=== PATIENT | male | born 1960 | race American Indian/Alaskan Native ===

== ENCOUNTER 2019-10-23 11:38 | Inpatient (IN) | payer MEDICARE ==
--- NOTE | 2019-10-23 11:52 | Event Note ---
ED Screening Note Date of service: 10/23/19 Time: 11:51 ED Screening Note: 58 y o male with pmh of DVT presents for left calf pain with sob x 3 days worsening today This initial assessment/diagnostic orders/clinical plan/treatment(s) is/are subject to change based on patients health status, clinical progression and re- assessment by fellow clinical providers in the ED. Further treatment and workup at subsequent clinical providers discretion. Patient/guardian urged not to elope from the ED as their condition may be serious if not clinically assessed and managed. Initial orders include: labs us
--- NOTE | 2019-10-23 12:52 | XRay Report ---
CHEST 1 VIEW 10/23/2019 12:07 PM INDICATION / CLINICAL INFORMATION: Dyspnea. COMPARISON: None available. FINDINGS: SUPPORT DEVICES: None. HEART / MEDIASTINUM: No significant abnormality. LUNGS / PLEURA: There is no focal consolidation or significant effusion. There is mild linear opacifi cation in the right lung base most likely reflecting chronic scarring. No pneumothorax. ADDITIONAL FINDINGS: No significant additional findings. IMPRESSION: 1. No acute findings. Signer Name: Renato Huddleston MD Signed: 10/23/2019 12:47 PM Workstation Name: [id number]
--- NOTE | 2019-10-23 12:53 | Vascular Lab Report ---
DUPLEX DOPPLER LEFT LOWER EXTREMITY VEINS INDICATION: Shortness of Breath R/O DVT FINDINGS: There is lack of compressibility with lack of flow in the left mid to distal superficial femoral vein , left popliteal vein, and left posterior tibial vein consistent with occlusive DVT. The other visual ized left lower extremity veins appear patent. IMPRESSION: Occlusive DVT in the left mid to distal superficial femoral vein, left popliteal vein, and left poste rior tibial vein. Signer Name: Renato Huddleston MD Signed: 10/23/2019 12:49 PM Workstation Name: [id number]
[2019-10-23 14:03] LABS: Basophils % (Auto) 0.6 % (0.0-1.8); Eosinophils # (Auto) 0.1 K/mm3 (0.0-0.4); Eosinophils % (Auto) 1.2 % (0.0-4.3); Hematocrit 50.6 % (35.5-45.6); Hemoglobin 16.9 gm/dl (11.8-15.2); Lymphocytes # (Auto) 2.3 K/mm3 (1.2-5.4); Mean Corpuscular HGB Conc 33 % (32-34); Mean Corpuscular Volume 90 fl (84-94); Monocytes % (Auto) 13.2 % (0.0-7.3); Platelet Count 160 K/mm3 (140-440); Red Blood Count 5.62 M/mm3 (3.65-5.03); Red Cell Distribution Width 14.9 % (13.2-15.2)
[2019-10-23 14:14] LABS: Calcium 9.5 mg/dL (8.4-10.2)
[2019-10-23] MEDS ORDERED: SODIUM CHLORIDE 0.9% 500 ML 500 ML IV ONE (16:01)
[2019-10-23] MEDS ORDERED: ENOXAPARIN 100 MG/1 ML INJ SUB-Q STA (16:01)
--- NOTE | 2019-10-23 16:02 | Event Note ---
Date of service: 10/23/19 Face to Face: 58-year-old gentleman with history of DVT a few years ago, recently moved here from [place], now presenting with 3-4 days of left leg pain, and discomfort, found to have rather large DVT. He endorsed shortness of breath to physician golf course assistant and nursing staff. Lovenox ordered. IV fluids ordered. CT angiogram chest ordered. We will reassess after initial data points. If no pulmonary embolism is identified on CT angiogram, we will discussed with vascular surgery appropriate disposition in versus outpatient anticoagulation. EKG shows a sinus rhythm, left axis deviation, left anterior fascicular block, without prior for comparison. The patient indicated no contraindications to systemic anticoagulation. update at 702 pm, 10/23/2019 Found to have large pulmonary emboli, no evidence of right heart strain. Case was discussed with vascular surgery by my physician golf course assistant, Dr. Garcia, he advises that catheter directed lysis is not indicated at this time, indicates his group can follow in consultation. Hospital physician, Dr. Rosa Stuart to admit Vital Signs 10/23/19 11:51 Temperature 99 F Pulse Rate 70 Respiratory 20 Rate Blood Pressure 122/83 O2 Sat by Pulse 96 Oximetry Lab Results 10/23/19 10/23/19 10/23/19 Range/Units 13:35 13:35 13:35 WBC 7.4 (4.5-11.0) K/mm3 RBC 5.62 H (3.65-5.03) M/mm3 Hgb 16.9 H (11.8-15.2) gm/dl Hct 50.6 H (35.5-45.6) % MCV 90 (84-94) fl MCH 30 (28-32) pg MCHC 33 (32-34) % RDW 14.9 (13.2-15.2) % Plt Count 160 (140-440) K/mm3 Lymph % (Auto) 31.0 (13.4-35.0) % [place] % (Auto) 13.2 H (0.0-7.3) % Eos % (Auto) 1.2 (0.0-4.3) % Baso % (Auto) 0.6 (0.0-1.8) % Lymph # 2.3 (1.2-5.4) K/mm3 [place] # 1.0 H (0.0-0.8) K/mm3 Eos # 0.1 (0.0-0.4) K/mm3 Baso # 0.0 (0.0-0.1) K/mm3 Seg Neutrophils % 54.0 (40.0-70.0) % Seg Neutrophils # 4.0 (1.8-7.7) K/mm3 PT (12.2-14.9) Sec. INR (0.87-1.13) APTT (24.2-36.6) Sec. D-Dimer > 72827 H (0-234) ng/mlDDU Sodium 138 (137-145) mmol/L Potassium 4.4 (3.6-5.0) mmol/L Chloride 99.1 (98-107) mmol/L Carbon Dioxide 25 (22-30) mmol/L Anion Gap 18 mmol/L BUN 16 (9-20) mg/dL Creatinine 1.4 (0.8-1.5) mg/dL Estimated GFR 52 ml/min BUN/Creatinine Ratio 11 % Glucose 94 (75-100) mg/dL Calcium 9.5 (8.4-10.2) mg/dL Magnesium (1.7-2.3) mg/dL Total Bilirubin (0.1-1.2) mg/dL Direct Bilirubin (0-0.2) mg/dL Indirect Bilirubin mg/dL AST (5-40) units/L ALT (7-56) units/L Alkaline Phosphatase (35-129) units/L Total Creatine Kinase (55-170) units/L Troponin T (0.00-0.029) ng/mL NT-Pro-B Natriuret Pep (0-900) pg/mL Total Protein (6.3-8.2) g/dL Albumin (3.9-5) g/dL Albumin/Globulin Ratio % 10/23/19 10/23/19 10/23/19 Range/Units 13:35 15:54 15:54 WBC (4.5-11.0) K/mm3 RBC (3.65-5.03) M/mm3 Hgb (11.8-15.2) gm/dl Hct (35.5-45.6) % MCV (84-94) fl MCH (28-32) pg MCHC (32-34) % RDW (13.2-15.2) % Plt Count (140-440) K/mm3 Lymph % (Auto) (13.4-35.0) % [place] % (Auto) (0.0-7.3) % Eos % (Auto) (0.0-4.3) % Baso % (Auto) (0.0-1.8) % Lymph # (1.2-5.4) K/mm3 [place] # (0.0-0.8) K/mm3 Eos # (0.0-0.4) K/mm3 Baso # (0.0-0.1) K/mm3 Seg Neutrophils % (40.0-70.0) % Seg Neutrophils # (1.8-7.7) K/mm3 PT 13.9 (12.2-14.9) Sec. INR 1.08 (0.87-1.13) APTT 23.9 L (24.2-36.6) Sec. D-Dimer (0-234) ng/mlDDU Sodium (137-145) mmol/L Potassium (3.6-5.0) mmol/L Chloride (98-107) mmol/L Carbon Dioxide (22-30) mmol/L Anion Gap mmol/L BUN (9-20) mg/dL Creatinine (0.8-1.5) mg/dL Estimated GFR ml/min BUN/Creatinine Ratio % Glucose (75-100) mg/dL Calcium (8.4-10.2) mg/dL Magnesium 1.80 (1.7-2.3) mg/dL Total Bilirubin 0.60 (0.1-1.2) mg/dL Direct Bilirubin < 0.2 (0-0.2) mg/dL Indirect Bilirubin 0.4 mg/dL AST 29 (5-40) units/L ALT 27 (7-56) units/L Alkaline Phosphatase 83 (35-129) units/L Total Creatine Kinase 231 H (55-170) units/L Troponin T < 0.010 (0.00-0.029) ng/mL NT-Pro-B Natriuret Pep 114.2 (0-900) pg/mL Total Protein 8.1 (6.3-8.2) g/dL Albumin 3.8 L (3.9-5) g/dL Albumin/Globulin Ratio 0.9 % Print Report Referring Physician: JAMIE TRUJILLO Patient Name: GENE COBOS Date of : 1960 Sex: Male Report Date: 2019-10-23 Report Status: Finalized Findings [facility] [address] [place] [address] Cat Scan Report Signed Patient: GENE COBOS MR#: [id number] : 1960 Acct:[id number] Age/Sex: 58 / M ADM Date: 10/23/19 Loc: ED Attending Dr: Ordering Physician: JAMIE TRUJILLO Date of Service: 10/23/19 Procedure(s): CT angio chest Accession Number(s): [id number] cc: JAMIE TRUJILLO CTA CHEST WITH IV CONTRAST INDICATION: + DVT, SOB. TECHNIQUE: Axial CT images were obtained through the chest after injection of the patient received 60 mL of IV Omnipaque 350 IV contrast. 3 plane MIP reconstructions were produced. All CT scans at this location are performed using CT dose reduction for ALARA by means of automated exposure control. COMPARISON: None available. FINDINGS: Pulmonary Arteries: There are numerous pulmonary emboli involving the bilateral lobar arteries extending into the segmental arteries relatively diffusely in both lungs. The largest burden of embolism appears to be in the right lower lobe with multiple segmental and subsegmental arteries involved. There is no definite evidence of right heart strain by CT. Lungs: There is no consolidation or evidence of pulmonary infarct. There is mild subpleural reticulation in both lower lobes. There is no pleural effusion or pneumothorax. Trachea and Bronchi: No significant abnormality. Heart and Pericardium: There is moderate coronary artery atherosclerosis. Vasculature: No significant abnormality. Lymphatics: No lymphadenopathy. Additional Findings: None. Upper Abdomen: No acute findings. Skeletal Structures: No significant osseous abnormality. IMPRESSION: 1. Bilateral large burden of lobar, segmental, and subsegmental PE. No saddle embolus identified. No definite findings to suggest right heart strain by CT. 2. No acute pulmonary parenchymal findings. Findings were discussed with Dr. García at about 5:35 PM central time on 10/23/2019. Signer Name: Renato Huddleston MD Signed: 10/23/2019 6:48 PM Workstation Name: [id number] Transcribed By: BIA Dictated By: Renato Huddleston MD Electronically Authenticated By: Renato Huddleston MD Signed Date/Time: 10/23/19 2771
[2019-10-23 16:19] LABS: INR 1.08 (0.87-1.13)
[2019-10-23 16:20] LABS: Partial Thromboplastin Time 23.9 Sec. (24.2-36.6)
--- NOTE | 2019-10-23 16:39 | Emergency Department Report ---
ED General Adult HPI - General Chief complaint: Dyspnea/Respdistress Stated complaint: SOB/RT LEG PAIN Time Seen by Provider: 10/23/19 16:00 Source: patient Mode of arrival: Ambulatory Limitations: No Limitations - History of Present Illness Initial comments: 58-year-old -[place] male patient with history of CAD with 5 stent placements, COPD, sleep apnea, hypertension, and DVT presents with complaints of left lower leg swelling and shortness of breath for the past 4 days. Patient denies any current anticoagulants. He states that he had recent long travel in the beginning of September via car ride from [place]. He rates his pain as a 7/10 in severity and states it worsens with ambulation. Patient states the shortness of breath occurs only with exertion and there is no shortness of breath at rest. PHe reports he denies any leg swelling, however states his leg feels really tight. Patient states he has been noncompliant with his CPAP machine for the past month and a half. He denies any further smoking, cough, fever, chest pain, dizziness, or syncopal episodes. -: Sudden, days(s) Severity scale (0 -10): 7 Quality: aching Consistency: constant Worsens with: movement Associated Symptoms: shortness of breath. denies: chest pain, cough, headaches, loss of appetite, syncope Treatments Prior to Arrival: none - Related Data Allergies Allergy/AdvReac Type Severity Reaction Status Date / Time ibuprofen Allergy Unknown Verified 10/23/19 11:40 ED Review of Systems ROS: Stated complaint: SOB/RT LEG PAIN Other details as noted in HPI Comment: All other systems reviewed and negative Respiratory: shortness of breath, SOB with exertion. denies: cough, orthopnea, SOB at rest, stridor, wheezing Cardiovascular: denies: chest pain, edema Musculoskeletal: as per HPI ED Past Medical Hx - Past Medical History Hx COPD: Yes Additional medical history: BRONCHTITS/ SLEEP APNEA - Surgical History Additional Surgical History: STENTS X5 - Social History Smoking Status: Former Smoker Substance Use Type: Alcohol, Marijuana ED Physical Exam - General Limitations: No Limitations General appearance: alert, in no apparent distress, obese - Head Head exam: Present: atraumatic, normocephalic - Eye Eye exam: Present: normal appearance. Absent: scleral icterus - ENT ENT exam: Present: normal exam, normal orophraynx, mucous membranes moist - Neck Neck exam: Present: normal inspection - Respiratory Respiratory exam: Present: normal lung sounds bilaterally. Absent: respiratory distress, chest wall tenderness - Cardiovascular Cardiovascular Exam: Present: regular rate, normal rhythm. Absent: systolic murmur, diastolic murmur, rubs, gallop - Rectal Rectal exam: Present: deferred - Extremities Exam Extremities exam: Present: calf tenderness (left-sided with tenderness extending to the posterior knee. No swelling or edema noted.), other (for moral and pedal pulses are palpable bilaterally. Right popliteal pulse palpable, however unable to palpate left popliteal pulse and no cyanosis, erythema,or swelling of the left leg noted) - Back Exam Back exam: Present: full ROM - Neurological Exam Neurological exam: Present: alert, oriented X3, normal gait - Psychiatric Psychiatric exam: Present: normal affect, normal mood - Skin Skin exam: Present: warm, dry, intact, normal color. Absent: rash, cyanosis, diaphoretic, erythema ED Course Vital Signs 10/23/19 10/23/19 11:51 16:01 Temperature 99 F Pulse Rate 70 Respiratory 20 18 Rate Blood Pressure 122/83 O2 Sat by Pulse 96 100 Oximetry - Reevaluation(s) Reevaluation #1: 10/23/19 18:28 Patient's satting at 99% on [address] angios chest results pending, however it appears patient multiple bilateral emboli Large DVT noted on ultrasound Vascular surgeon paged, pending recommendations and admission Reevaluation #2: 10/23/19 18:[address] Garcia, vascular surgery-recommends anticoagulation for treatment with admission. He states he will consult on patient. Admission. Patient with Dr. Stuart, patient to be admitted to hospital medicine. Pt remains stable ED Medical Decision Making - Lab Data Result diagrams: 10/23/19 13:35 10/23/19 13:35 Lab Results 10/23/19 10/23/19 10/23/19 Range/Units 13:35 13:35 13:35 WBC 7.4 (4.5-11.0) K/mm3 RBC 5.62 H (3.65-5.03) M/mm3 Hgb 16.9 H (11.8-15.2) gm/dl Hct 50.6 H (35.5-45.6) % MCV 90 (84-94) fl MCH 30 (28-32) pg MCHC 33 (32-34) % RDW 14.9 (13.2-15.2) % Plt Count 160 (140-440) K/mm3 Lymph % (Auto) 31.0 (13.4-35.0) % [place] % (Auto) 13.2 H (0.0-7.3) % Eos % (Auto) 1.2 (0.0-4.3) % Baso % (Auto) 0.6 (0.0-1.8) % Lymph # 2.3 (1.2-5.4) K/mm3 [place] # 1.0 H (0.0-0.8) K/mm3 Eos # 0.1 (0.0-0.4) K/mm3 Baso # 0.0 (0.0-0.1) K/mm3 Seg Neutrophils % 54.0 (40.0-70.0) % Seg Neutrophils # 4.0 (1.8-7.7) K/mm3 PT (12.2-14.9) Sec. INR (0.87-1.13) APTT (24.2-36.6) Sec. D-Dimer > 80468 H (0-234) ng/mlDDU Sodium 138 (137-145) mmol/L Potassium 4.4 (3.6-5.0) mmol/L Chloride 99.1 (98-107) mmol/L Carbon Dioxide 25 (22-30) mmol/L Anion Gap 18 mmol/L BUN 16 (9-20) mg/dL Creatinine 1.4 (0.8-1.5) mg/dL Estimated GFR 52 ml/min BUN/Creatinine Ratio 11 % Glucose 94 (75-100) mg/dL Calcium 9.5 (8.4-10.2) mg/dL Magnesium (1.7-2.3) mg/dL Total Bilirubin (0.1-1.2) mg/dL Direct Bilirubin (0-0.2) mg/dL Indirect Bilirubin mg/dL AST (5-40) units/L ALT (7-56) units/L Alkaline Phosphatase (35-129) units/L Total Creatine Kinase (55-170) units/L Troponin T (0.00-0.029) ng/mL NT-Pro-B Natriuret Pep (0-900) pg/mL Total Protein (6.3-8.2) g/dL Albumin (3.9-5) g/dL Albumin/Globulin Ratio % 10/23/19 10/23/19 10/23/19 Range/Units 13:35 15:54 15:54 WBC (4.5-11.0) K/mm3 RBC (3.65-5.03) M/mm3 Hgb (11.8-15.2) gm/dl Hct (35.5-45.6) % MCV (84-94) fl MCH (28-32) pg MCHC (32-34) % RDW (13.2-15.2) % Plt Count (140-440) K/mm3 Lymph % (Auto) (13.4-35.0) % [place] % (Auto) (0.0-7.3) % Eos % (Auto) (0.0-4.3) % Baso % (Auto) (0.0-1.8) % Lymph # (1.2-5.4) K/mm3 [place] # (0.0-0.8) K/mm3 Eos # (0.0-0.4) K/mm3 Baso # (0.0-0.1) K/mm3 Seg Neutrophils % (40.0-70.0) % Seg Neutrophils # (1.8-7.7) K/mm3 PT 13.9 (12.2-14.9) Sec. INR 1.08 (0.87-1.13) APTT 23.9 L (24.2-36.6) Sec. D-Dimer (0-234) ng/mlDDU Sodium (137-145) mmol/L Potassium (3.6-5.0) mmol/L Chloride (98-107) mmol/L Carbon Dioxide (22-30) mmol/L Anion Gap mmol/L BUN (9-20) mg/dL Creatinine (0.8-1.5) mg/dL Estimated GFR ml/min BUN/Creatinine Ratio % Glucose (75-100) mg/dL Calcium (8.4-10.2) mg/dL Magnesium 1.80 (1.7-2.3) mg/dL Total Bilirubin 0.60 (0.1-1.2) mg/dL Direct Bilirubin < 0.2 (0-0.2) mg/dL Indirect Bilirubin 0.4 mg/dL AST 29 (5-40) units/L ALT 27 (7-56) units/L Alkaline Phosphatase 83 (35-129) units/L Total Creatine Kinase 231 H (55-170) units/L Troponin T < 0.010 (0.00-0.029) ng/mL NT-Pro-B Natriuret Pep 114.2 (0-900) pg/mL Total Protein 8.1 (6.3-8.2) g/dL Albumin 3.8 L (3.9-5) g/dL Albumin/Globulin Ratio 0.9 % - EKG Data EKG shows normal: sinus rhythm Rate: normal - EKG Data Interpretation: nonspecific ST-T wave lexi, other (left anterior fascicular block ) - Radiology Data CHEST 1 VIEW 10/23/2019 12:07 PM INDICATION / CLINICAL INFORMATION: Dyspnea. COMPARISON: None available. FINDINGS: SUPPORT DEVICES: None. HEART / MEDIASTINUM: No significant abnormality. LUNGS / PLEURA: There is no focal consolidation or significant effusion. There is mild linear opacification in the right lung base most likely reflecting chronic scarring. No pneumothorax. ADDITIONAL FINDINGS: No significant additional findings. IMPRESSION: 1. No acute findings. . . . . DUPLEX DOPPLER LEFT LOWER EXTREMITY VEINS INDICATION: Shortness of Breath R/O DVT FINDINGS: There is lack of compressibility with lack of flow in the left mid to distal superficial femoral vein, left popliteal vein, and left posterior tibial vein consistent with occlusive DVT. The other visualized left lower extremity veins appear patent. IMPRESSION: Occlusive DVT in the left mid to distal superficial femoral vein, left popliteal vein, and left posterior tibial vein. . . . . Critical care attestation.: If time is entered above; I have spent that time in minutes in the direct care of this critically ill patient, excluding procedure time. ED Disposition Clinical Impression: Pulmonary embolism Qualifiers: Pulmonary embolism type: other Chronicity: acute Acute cor pulmonale presence: unspecified Qualified Code(s): I26.99 - Other pulmonary embolism without acute cor pulmonale Left leg DVT Qualifiers: Affected thrombotic vein of extremity: other lower extremity vein Chronicity: acute Qualified Code(s): I82.492 - Acute embolism and thrombosis of other specified deep vein of left lower extremity Disposition: DC-09 OP ADMIT IP TO THIS HOSP Is pt being admited?: Yes Condition: Stable Referrals: PRIMARY CARE, [Primary Care Provider] - 3-5 Days
[2019-10-23 16:44] LABS: Alanine Aminotransferase 27 units/L (7-56); Albumin 3.8 g/dL (3.9-5); Bilirubin,Direct < 0.2 mg/dL (0-0.2)
--- NOTE | 2019-10-23 18:53 | Cat Scan Report ---
CTA CHEST WITH IV CONTRAST INDICATION: + DVT, SOB. TECHNIQUE: Axial CT images were obtained through the chest after injection of the patient received 60 mL of IV O mnipaque 350 IV contrast. 3 plane MIP reconstructions were produced. All CT scans at this location ar e performed using CT dose reduction for ALARA by means of automated exposure control. COMPARISON: None available. FINDINGS: Pulmonary Arteries: There are numerous pulmonary emboli involving the bilateral lobar arteries extend ing into the segmental arteries relatively diffusely in both lungs. The largest burden of embolism ap pears to be in the right lower lobe with multiple segmental and subsegmental arteries involved. There is no definite evidence of right heart strain by CT. Lungs: There is no consolidation or evidence of pulmonary infarct. There is mild subpleural reticulat ion in both lower lobes. There is no pleural effusion or pneumothorax. Trachea and Bronchi: No significant abnormality. Heart and Pericardium: There is moderate coronary artery atherosclerosis. Vasculature: No significant abnormality. Lymphatics: No lymphadenopathy. Additional Findings: None. Upper Abdomen: No acute findings. Skeletal Structures: No significant osseous abnormality. IMPRESSION: 1. Bilateral large burden of lobar, segmental, and subsegmental PE. No saddle embolus identified. No definite findings to suggest right heart strain by CT. 2. No acute pulmonary parenchymal findings. Findings were discussed with Dr. García at about 5:35 PM central time on 10/23/2019. Signer Name: Renato Huddleston MD Signed: 10/23/2019 6:48 PM Workstation Name: [id number]
[2019-10-23] MEDS ORDERED: ALBUTEROL 2.5 MG/3 ML NEBU IH PRN (19:48)
[2019-10-23] MEDS ORDERED: ACETAMINOPHEN 325 MG TAB PO PRN (19:48)
[2019-10-23] MEDS ORDERED: ONDANSETRON 4 MG/2 ML INJ IV PRN (19:48)
--- NOTE | 2019-10-23 20:55 | History and Physical Report ---
History of Present Illness Date of examination: 10/23/19 Date of admission: 10/23/2019 Chief complaint: SOB, left leg pain History of present illness: 68-year-old -[place] male with history of DVT not currently on anticoagulation, hypertension, ROSALEE noncompliant CPAP, COPD, CAD status post stent 5 who presents [facility] ED with complaints of shortness of breath and left lower extremity swelling and pain x4 days. He describes his pain as sharp and s tates that "it feels like someone is head and head with a baseball bat to his leg". He rates the pain 8/10. Pain is aggravated with ambulation and movement. He has shortness of breath at rest which is worse with exertion. Patient states that he has a history of DVT and was previously on Coumadin which was discontinued approximately a year ago by his medical provider. He states that he recently moved from [place] to [place] in the beginning of September, and is currently living with his girlfriend. Admits to drive and from [place] to [place] but states that he stopped for frequent rest periods. Other than that there has been no prolonged period of immobility. He denies tobacco use, and admits to occasional social drinking. He does not have an established PCP in [place]. Past History Past Medical History: CAD, COPD, DVT (completed coumadin therapy one year ago), hypertension, other (ROSALEE noncompliant with CPAP) Past Surgical History: Other (stent x5) Social history: lives with family (girlfriend), other (occasional marijuana use, drinks 1-2 alcoholic beverages per week) Family history: no significant family history Medications and Allergies Allergies Allergy/AdvReac Type Severity Reaction Status Date / Time ibuprofen Allergy Unknown Verified 10/23/19 11:40 Home Medications Medication Instructions Recorded Confirmed Last Taken Type Aspirin [Adult Aspirin] 81 mg PO QDAY 10/23/19 10/23/19 Unknown History Atenolol [Tenormin] 25 mg PO DAILY 10/23/19 10/23/19 Unknown History AtorvaSTATin [Lipitor] 80 mg PO QHS 10/23/19 10/23/19 Unknown History FLUoxetine [PROzac] 20 mg PO QDAY 10/23/19 10/23/19 Unknown History Finasteride 5 mg PO QDAY 10/23/19 10/23/19 Unknown History Omeprazole 20 mg PO QDAY 10/23/19 10/23/19 Unknown History buPROPion [Wellbutrin] 300 mg PO QDAY 10/23/19 10/23/19 Unknown History Active Meds: Active Medications Acetaminophen (Tylenol) 650 mg PO Q4H PRN PRN Reason: Pain MILD(1-3)/Fever >100.5/DIAZ Albuterol (Proventil) 2.5 mg IH Q3HRT PRN PRN Reason: Shortness Of Breath Atorvastatin Calcium (Lipitor) 40 mg PO QHS CHERYL Enoxaparin Sodium (Enoxaparin) 120 mg SUB-Q Q12HR CHERYL Ondansetron HCl (Zofran) 4 mg IV Q8H PRN PRN Reason: Nausea And Vomiting Oxycodone/Acetaminophen (Percocet 5/325) 1 tab PO Q6H PRN PRN Reason: Pain, Moderate (4-6) Sodium Chloride (Sodium Chloride Flush Syringe 10 Ml) 10 ml IV BID CHERYL Sodium Chloride (Sodium Chloride Flush Syringe 10 Ml) 10 ml IV PRN PRN PRN Reason: LINE FLUSH Review of Systems All systems: negative Cardiovascular: shortness of breath, dyspnea on exertion Respiratory: shortness of breath, dyspnea on exertion Musculoskeletal: other (left leg pain) Exam - Physical Exam Narrative exam: Physical exam General appearance: Present: No acute distress, alert and oriented 3, well- developed, well-nourished, adult -[place] male - EENT Eyes: Present: PERRL, EOM intact ENT: hearing intact, missing teeth - Neck Neck: Present: supple, normal ROM - Respiratory Respiratory effort: Non-labored Respiratory: Clear throughout - Cardiovascular Heart rate: 699 (bpm) Rhythm: Sinus rhythm Heart Sounds: Present: S1 & S2. Absent: rub, click - Extremities Extremities: no ischemia, pulses intact, left calf tenderness - Peripheral Assessment Peripheral Pulses: within normal limits - Abdominal General gastrointestinal: soft, non-tender, normal bowel sounds - Integumentary Integumentary: Present: warm, dry - Musculoskeletal Musculoskeletal: Able to move all extremities -Neurological Neurological: CN II-XII intact - Psychiatric Psychiatric: Appropriate for situation ,cooperative - Constitutional Vitals: Temp Pulse Resp BP Pulse Ox 98.5 F 69 14 120/75 98 10/23/19 19:15 10/23/19 19:15 10/23/19 19:15 10/23/19 19:15 10/23/19 19:15 Results - Labs CBC & Chem 7: 10/23/19 13:35 10/23/19 13:35 Labs: Laboratory Last Values WBC 7.4 K/mm3 (4.5-11.0) 10/23/19 13:35 RBC 5.62 M/mm3 (3.65-5.03) H 10/23/19 13:35 Hgb 16.9 gm/dl (11.8-15.2) H 10/23/19 13:35 Hct 50.6 % (35.5-45.6) H 10/23/19 13:35 MCV 90 fl (84-94) 10/23/19 13:35 MCH 30 pg (28-32) 10/23/19 13:35 MCHC 33 % (32-34) 10/23/19 13:35 RDW 14.9 % (13.2-15.2) 10/23/19 13:35 Plt Count 160 K/mm3 (140-440) 10/23/19 13:35 Lymph % (Auto) 31.0 % (13.4-35.0) 10/23/19 13:35 [place] % (Auto) 13.2 % (0.0-7.3) H 10/23/19 13:35 Eos % (Auto) 1.2 % (0.0-4.3) 10/23/19 13:35 Baso % (Auto) 0.6 % (0.0-1.8) 10/23/19 13:35 Lymph # 2.3 K/mm3 (1.2-5.4) 10/23/19 13:35 [place] # 1.0 K/mm3 (0.0-0.8) H 10/23/19 13:35 Eos # 0.1 K/mm3 (0.0-0.4) 10/23/19 13:35 Baso # 0.0 K/mm3 (0.0-0.1) 10/23/19 13:35 Seg Neutrophils % 54.0 % (40.0-70.0) 10/23/19 13:35 Seg Neutrophils # 4.0 K/mm3 (1.8-7.7) 10/23/19 13:35 PT 13.9 Sec. (12.2-14.9) 10/23/19 15:54 INR 1.08 (0.87-1.13) 10/23/19 15:54 APTT 23.9 Sec. (24.2-36.6) L 10/23/19 15:54 D-Dimer > 04035 ng/mlDDU (0-234) H 10/23/19 13:35 Sodium 138 mmol/L (137-145) 10/23/19 13:35 Potassium 4.4 mmol/L (3.6-5.0) 10/23/19 13:35 Chloride 99.1 mmol/L (98-107) 10/23/19 13:35 Carbon Dioxide 25 mmol/L (22-30) 10/23/19 13:35 Anion Gap 18 mmol/L 10/23/19 13:35 BUN 16 mg/dL (9-20) 10/23/19 13:35 Creatinine 1.4 mg/dL (0.8-1.5) 10/23/19 13:35 Estimated GFR 52 ml/min 10/23/19 13:35 BUN/Creatinine Ratio 11 % 10/23/19 13:35 Glucose 94 mg/dL (75-100) 10/23/19 13:35 Calcium 9.5 mg/dL (8.4-10.2) 10/23/19 13:35 Magnesium 1.80 mg/dL (1.7-2.3) 10/23/19 13:35 Total Bilirubin 0.60 mg/dL (0.1-1.2) 10/23/19 13:35 Direct Bilirubin < 0.2 mg/dL (0-0.2) 10/23/19 13:35 Indirect Bilirubin 0.4 mg/dL 10/23/19 13:35 AST 29 units/L (5-40) 10/23/19 13:35 ALT 27 units/L (7-56) 10/23/19 13:35 Alkaline Phosphatase 83 units/L (35-129) 10/23/19 13:35 Total Creatine Kinase 231 units/L (55-170) H 10/23/19 13:35 Troponin T < 0.010 ng/mL (0.00-0.029) 10/23/19 15:54 NT-Pro-B Natriuret Pep 114.2 pg/mL (0-900) 10/23/19 13:35 Total Protein 8.1 g/dL (6.3-8.2) 10/23/19 13:35 Albumin 3.8 g/dL (3.9-5) L 10/23/19 13:35 Albumin/Globulin Ratio 0.9 % 10/23/19 13:35 - Imaging and Cardiology Imaging and Cardiology: CXR: FINDINGS: SUPPORT DEVICES: None. HEART / MEDIASTINUM: No significant abnormality. LUNGS / PLEURA: There is no focal consolidation or significant effusion. There is mild linear opacification in the right lung base most likely reflecting chronic scarring. No pneumothorax. ADDITIONAL FINDINGS: No significant additional findings. IMPRESSION: 1. No acute findings. CT angio Chest: FINDINGS: Pulmonary Arteries: There are numerous pulmonary emboli involving the bilateral lobar arteries extending into the segmental arteries relatively diffusely in both lungs. The largest burden of embolism appears to be in the right lower lobe with multiple segmental and subsegmental arteries involved. There is no definite evidence of right heart strain by CT. Lungs: There is no consolidation or evidence of pulmonary infarct. There is mild subpleural reticulation in both lower lobes. There is no pleural effusion or pneumothorax. Trachea and Bronchi: No significant abnormality. Heart and Pericardium: There is moderate coronary artery atherosclerosis. Vasculature: No significant abnormality. Lymphatics: No lymphadenopathy. Additional Findings: None. Upper Abdomen: No acute findings. Skeletal Structures: No significant osseous abnormality. IMPRESSION: 1. Bilateral large burden of lobar, segmental, and subsegmental PE. No saddle embolus identified. No definite findings to suggest right heart strain by CT. 2. No acute pulmonary parenchymal findings. Bilaterl Lower Extremity Doppler: FINDINGS: There is lack of compressibility with lack of flow in the left mid to distal superficial femoral vein, left popliteal vein, and left posterior tibial vein consistent with occlusive DVT. The other visualized left lower extremity veins appear patent. IMPRESSION: Occlusive DVT in the left mid to distal superficial femoral vein, left popliteal vein, and left posterior tibial vein. Assessment and Plan Assessment and plan: 68-year-old -[place] male with history of DVT not currently on anticoagulation, hypertension, ROSALEE noncompliant CPAP, COPD, CAD status post stent 5 who presents [facility] ED with complaints of shortness of breath and left lower extremity swelling and pain x4 days. Pt had significantly elevated d- dimer, CT angiogram was performed which showed bilateral large subsegmental PE, and BLE Doppler revealed LLE DVT. Pt given first dose of therapeutic Lovenox in ED. Will continue with Lovenox 1mg/kg BID. Will admit for further evaluation. Bilateral large subsegmental PE -Seen on CT angio Chest -No previous hx of PE -On Lovenox 1mg/kg -Continue Supportive Care -Hematology consulted Left Lower Extremity DVT -D-Dimer 10K -Bilateral BLE Doppler showed: DVT in the left mid to distal superficial femoral vein, left popliteal vein, and left posterior tibial vein -Hx of DVT; not currently on anticoagulation -Was on Coumadin but d/c'd per MD one year ago -On Lovenox 1mg/kg -Continue Supportive -Hematology consulted -Vascular consulted with plans to see pt in am HTN -Monitor BP -Resume home hypertensive meds Hx CAD -s/p stent x5 -Start Statin Hx COPD -Albuterol prn Hx ROSALEE -noncompliant with CPAP DVT PPX -on full dose Lovenox Advance Directives: No VTE prophylaxis?: Chemical Plan of care discussed with patient/family: Yes
[2019-10-23] MEDS ORDERED: ENOXAPARIN 100 MG/1 ML INJ SUB-Q SCH (22:00)
[2019-10-23] MEDS ORDERED: ENOXAPARIN 60 MG/0.6 ML INJ SUB-Q SCH (22:00)
--- NOTE | 2019-10-24 00:21 | Consultation ---
History of Present Illness - Reason for Consult Consult date: 10/24/19 - History of Present Illness HPI: 58yo male with hx of bilateral lower extremity DVT presents with worsening chest/back pain and left leg pain. CTA demonstrated bilateral pulmonary embolism and extensive left lower extremity DVT was seen on venous duplex. patient denies shortness of breath or dyspnea on exertion. ROS: as per HPI Vitals stable PE: NAD, A&Ox3 non-labored respirations RRR no swelling noted of the left leg no TTP both feet warm with motor/sensory intact CTA reviewed venous duplex reviewed Plan: patient with pulmonary embolism and left leg DVT patient with no current oxygen requirements or evidence of right heart strain patient to likely require lifelong anticoagulation given recurrent DVT no intervention required from vascular standpoint patient to benefit from Hematology consult/follow-up please call for any questions/concerns Past History Past Medical History: CAD, COPD, DVT (completed coumadin therapy one year ago), hypertension, other (ROSALEE noncompliant with CPAP) Past Surgical History: Other (stent x5) Social history: lives with family (girlfriend), other (occasional marijuana use, drinks 1-2 alcoholic beverages per week) Family history: no significant family history Medications and Allergies Allergies Allergy/AdvReac Type Severity Reaction Status Date / Time ibuprofen Allergy Unknown Verified 10/23/19 11:40 Home Medications Medication Instructions Recorded Confirmed Last Taken Type Aspirin [Adult Aspirin] 81 mg PO QDAY 10/23/19 10/23/19 Unknown History Atenolol [Tenormin] 25 mg PO DAILY 10/23/19 10/23/19 Unknown History AtorvaSTATin [Lipitor] 80 mg PO QHS 10/23/19 10/23/19 Unknown History FLUoxetine [PROzac] 20 mg PO QDAY 10/23/19 10/23/19 Unknown History Finasteride 5 mg PO QDAY 10/23/19 10/23/19 Unknown History Omeprazole 20 mg PO QDAY 10/23/19 10/23/19 Unknown History buPROPion [Wellbutrin] 300 mg PO QDAY 10/23/19 10/23/19 Unknown History Active Meds: Active Medications Acetaminophen (Tylenol) 650 mg PO Q4H PRN PRN Reason: Pain MILD(1-3)/Fever >100.5/DIAZ Albuterol (Proventil) 2.5 mg IH Q3HRT PRN PRN Reason: Shortness Of Breath Atorvastatin Calcium (Lipitor) 40 mg PO QHS CHERYL Enoxaparin Sodium (Enoxaparin) 120 mg SUB-Q Q12H CHERYL Ondansetron HCl (Zofran) 4 mg IV Q8H PRN PRN Reason: Nausea And Vomiting Oxycodone/Acetaminophen (Percocet 5/325) 1 tab PO Q6H PRN PRN Reason: Pain, Moderate (4-6) Sodium Chloride (Sodium Chloride Flush Syringe 10 Ml) 10 ml IV BID CHERYL Sodium Chloride (Sodium Chloride Flush Syringe 10 Ml) 10 ml IV PRN PRN PRN Reason: LINE FLUSH Exam - Constitutional Vitals: Temp Pulse Resp BP Pulse Ox 98.5 F 60 18 120/74 98 10/23/19 19:15 10/23/19 20:30 10/23/19 20:30 10/23/19 20:30 10/23/19 20:30 Results - Labs CBC & Chem 7: 10/23/19 13:35 10/23/19 13:35 Labs: Abnormal lab results 10/23/19 10/23/19 10/23/19 Range/Units 13:35 13:35 13:35 RBC 5.62 H (3.65-5.03) M/mm3 Hgb 16.9 H (11.8-15.2) gm/dl Hct 50.6 H (35.5-45.6) % [place] % (Auto) 13.2 H (0.0-7.3) % [place] # 1.0 H (0.0-0.8) K/mm3 APTT (24.2-36.6) Sec. D-Dimer > 01171 H (0-234) ng/mlDDU Total Creatine Kinase 231 H (55-170) units/L Albumin 3.8 L (3.9-5) g/dL 10/23/19 Range/Units 15:54 RBC (3.65-5.03) M/mm3 Hgb (11.8-15.2) gm/dl Hct (35.5-45.6) % [place] % (Auto) (0.0-7.3) % [place] # (0.0-0.8) K/mm3 APTT 23.9 L (24.2-36.6) Sec. D-Dimer (0-234) ng/mlDDU Total Creatine Kinase (55-170) units/L Albumin (3.9-5) g/dL
[2019-10-24] MEDS: oxyCODONE /ACETAMINOPHEN 5-325MG TAB PO PRN ×2 (00:39→22:06)
[2019-10-24] MEDS: ENOXAPARIN 120 MG/0.8 ML INJ SUB-Q SCH ×2 (06:32→17:57)
[2019-10-24 07:32] LABS: Hematocrit 48.3 % (35.5-45.6); Hemoglobin 16.2 gm/dl (11.8-15.2); Mean Corpuscular HGB Conc 34 % (32-34); Mean Corpuscular Volume 91 fl (84-94); Platelet Count 148 K/mm3 (140-440); Red Blood Count 5.32 M/mm3 (3.65-5.03); Red Cell Distribution Width 14.4 % (13.2-15.2)
[2019-10-24 07:54] LABS: BUN/Creatinine Ratio 13; Blood Urea Nitrogen 15 mg/dL (9-20); Calcium 8.7 mg/dL (8.4-10.2); Hemolysis Index 21; LDL Cholesterol,Direct 101 mg/dL (50-130)
[2019-10-24 08:12] LABS: Chol/HDL Ratio 3.88 %; HDL Cholesterol 43 mg/dL (40-59)
[2019-10-24] MEDS ORDERED: NON-FORMULARY EACH (Omeprazole [Omeprazole] 20 MG) PO SCH (10:00)
[2019-10-24] MEDS: PANTOPRAZOLE 20 MG TAB PO SCH (10:38)
[2019-10-24] MEDS: FLUoxetine 20 MG CAP PO SCH (10:38)
[2019-10-24] MEDS: buPROPion XL 150 MG TAB PO SCH (10:38)
[2019-10-24] MEDS: FINASTERIDE 5 MG TAB PO SCH (10:39)
[2019-10-24] MEDS: atenoloL 25 MG TAB PO SCH (10:39)
[2019-10-24] MEDS: ASPIRIN EC 81 MG TAB PO SCH (10:39)
[2019-10-24 11:07] LABS: Basophils % (Manual) 0 % (0.0-1.8); Platelet Estimate Consistent w Auto; RBC Morphology Normal; Total Cells Counted 100
--- NOTE | 2019-10-24 12:13 | Progress Note ---
Assessment and Plan Assessment and plan: 58-year-old -English male with history of DVT not currently on anticoagulation, hypertension, ROSALEE noncompliant CPAP, COPD, CAD status post stent 5 who presents [facility] ED with complaints of shortness of breath and left lower extremity swelling and pain x4 days. Pt had significantly elevated d-dimer, CT angiogram was performed which showed bilateral large subsegmental PE and BLE Doppler revealed LLE DVT. Patient is on therapeutic Lovenox, evaluated by vascular, no vascular intervention at this point Patient needs to be on lifelong chronic anticoagulation, hematology consulted --Bilateral large subsegmental PE On Lovenox 1mg/kg Vascular evaluated,No vascular intervention needed Advised lifelong anticoagulation, Hematology consulted --Left Lower Extremity DVT DVT in the left mid to distal superficial femoral vein, left popliteal vein, and left posterior tibial vein --Hx of recurrent DVT; patient needs to be on chronic anticoagulation lifelong Hematology following --HTN : Moderate control Continue current antihypertensives and when necessary medications --H/O CAD status post PCI 5 Continue current cardiac medications --Hx COPD; Oxygen titrate O2 sats to more than 90% Albuterol when necessary -- Hx ROSALEE; on CPAP noncompliant with CPAP Advised to comply with treatment --DVT PPX: on full dose Lovenox --Full CODE STATUS Follow hematology evaluation requested Possible discharge home in 1-2 days on oral anti-coagulants. History Interval history: Patient seen and examined medical records reviewed Denies shortness of breath or chest pain Patient feels slightly better Vital signs noted Hospitalist Physical - Constitutional Vitals: Temp Pulse Resp BP Pulse Ox 97.9 F 66 18 118/77 96 10/24/19 11:30 10/24/19 11:30 10/24/19 11:30 10/24/19 11:30 10/24/19 11:30 General appearance: Present: no acute distress, well-nourished, obese - EENT Eyes: Present: PERRL, EOM intact - Neck Neck: Present: supple, normal ROM - Respiratory Respiratory effort: normal Respiratory: bilateral: diminished, rhonchi, negative: rales, wheezing - Cardiovascular Rhythm: regular Heart Sounds: Present: S1 & S2 - Extremities Extremities: no ischemia, No edema - Abdominal General gastrointestinal: soft, non-tender, non-distended, normal bowel sounds - Integumentary Integumentary: Present: clear, warm - Psychiatric Psychiatric: appropriate mood/affect, cooperative - Neurologic Neurologic: moves all extremities Results - Labs CBC & Chem 7: 10/24/19 06:30 10/24/19 06:30 Labs: Laboratory Last Values WBC 6.2 K/mm3 (4.5-11.0) 10/24/19 06:30 RBC 5.32 M/mm3 (3.65-5.03) H 10/24/19 06:30 Hgb 16.2 gm/dl (11.8-15.2) H 10/24/19 06:30 Hct 48.3 % (35.5-45.6) H 10/24/19 06:30 MCV 91 fl (84-94) 10/24/19 06:30 MCH 30 pg (28-32) 10/24/19 06:30 MCHC 34 % (32-34) 10/24/19 06:30 RDW 14.4 % (13.2-15.2) 10/24/19 06:30 Plt Count 148 K/mm3 (140-440) 10/24/19 06:30 Lymph % (Auto) 31.0 % (13.4-35.0) 10/23/19 13:35 [place] % (Auto) Information Systems Operator 10/24/19 06:30 Eos % (Auto) 1.2 % (0.0-4.3) 10/23/19 13:35 Baso % (Auto) 0.6 % (0.0-1.8) 10/23/19 13:35 Lymph # 2.3 K/mm3 (1.2-5.4) 10/23/19 13:35 [place] # 1.0 K/mm3 (0.0-0.8) H 10/23/19 13:35 Eos # 0.1 K/mm3 (0.0-0.4) 10/23/19 13:35 Baso # 0.0 K/mm3 (0.0-0.1) 10/23/19 13:35 Add Manual Diff Complete 10/24/19 06:30 Total Counted 100 10/24/19 06:30 Seg Neutrophils % 54.0 % (40.0-70.0) 10/23/19 13:35 Seg Neuts % (Manual) 44.0 % (40.0-70.0) 10/24/19 06:30 Band Neutrophils % 0 % 10/24/19 06:30 Lymphocytes % (Manual) 43.0 % (13.4-35.0) H 10/24/19 06:30 Reactive Lymphs % (Man) 0 % 10/24/19 06:30 Monocytes % (Manual) 11.0 % (0.0-7.3) H 10/24/19 06:30 Eosinophils % (Manual) 2.0 % (0.0-4.3) 10/24/19 06:30 Basophils % (Manual) 0 % (0.0-1.8) 10/24/19 06:30 Metamyelocytes % 0 % 10/24/19 06:30 Myelocytes % 0 % 10/24/19 06:30 Promyelocytes % 0 % 10/24/19 06:30 Blast Cells % 0 % 10/24/19 06:30 Nucleated RBC % Not Reportable 10/24/19 06:30 Seg Neutrophils # 4.0 K/mm3 (1.8-7.7) 10/23/19 13:35 Seg Neutrophils # Man 2.7 K/mm3 (1.8-7.7) 10/24/19 06:30 Band Neutrophils # 0.0 K/mm3 10/24/19 06:30 Lymphocytes # (Manual) 2.7 K/mm3 (1.2-5.4) 10/24/19 06:30 Abs React Lymphs (Man) 0.0 K/mm3 10/24/19 06:30 Monocytes # (Manual) 0.7 K/mm3 (0.0-0.8) 10/24/19 06:30 Eosinophils # (Manual) 0.1 K/mm3 (0.0-0.4) 10/24/19 06:30 Basophils # (Manual) 0.0 K/mm3 (0.0-0.1) 10/24/19 06:30 Metamyelocytes # 0.0 K/mm3 10/24/19 06:30 Myelocytes # 0.0 K/mm3 10/24/19 06:30 Promyelocytes # 0.0 K/mm3 10/24/19 06:30 Blast Cells # 0.0 K/mm3 10/24/19 06:30 WBC Morphology Not Reportable 10/24/19 06:30 Hypersegmented Neuts Not Reportable 10/24/19 06:30 Hyposegmented Neuts Not Reportable 10/24/19 06:30 Hypogranular Neuts Not Reportable 10/24/19 06:30 Smudge Cells Not Reportable 10/24/19 06:30 Toxic Granulation Not Reportable 10/24/19 06:30 Toxic Vacuolation Not Reportable 10/24/19 06:30 Dohle Bodies Not Reportable 10/24/19 06:30 Pelger-Huet Anomaly Not Reportable 10/24/19 06:30 Faby Rods Not Reportable 10/24/19 06:30 Platelet Estimate Consistent w auto 10/24/19 06:30 Clumped Platelets Not Reportable 10/24/19 06:30 Plt Clumps, EDTA Not Reportable 10/24/19 06:30 Large Platelets Not Reportable 10/24/19 06:30 Giant Platelets Not Reportable 10/24/19 06:30 Platelet Satelliting Not Reportable 10/24/19 06:30 Plt Morphology Comment Not Reportable 10/24/19 06:30 RBC Morphology Normal 10/24/19 06:30 Dimorphic RBCs Not Reportable 10/24/19 06:30 Polychromasia Not Reportable 10/24/19 06:30 Hypochromasia Not Reportable 10/24/19 06:30 Poikilocytosis Not Reportable 10/24/19 06:30 Anisocytosis Not Reportable 10/24/19 06:30 Microcytosis Not Reportable 10/24/19 06:30 Macrocytosis Not Reportable 10/24/19 06:30 Spherocytes Not Reportable 10/24/19 06:30 Pappenheimer Bodies Not Reportable 10/24/19 06:30 Sickle Cells Not Reportable 10/24/19 06:30 Target Cells Not Reportable 10/24/19 06:30 Tear Drop Cells Not Reportable 10/24/19 06:30 Ovalocytes Not Reportable 10/24/19 06:30 Helmet Cells Not Reportable 10/24/19 06:30 Tomlinson-Broadwell Bodies Not Reportable 10/24/19 06:30 [place] Rings Not Reportable 10/24/19 06:30 [place] Cells Not Reportable 10/24/19 06:30 Bite Cells Not Reportable 10/24/19 06:30 Crenated Cell Not Reportable 10/24/19 06:30 Elliptocytes Not Reportable 10/24/19 06:30 Acanthocytes (Spur) Not Reportable 10/24/19 06:30 Rouleaux Not Reportable 10/24/19 06:30 Hemoglobin C Crystals Not Reportable 10/24/19 06:30 Schistocytes Not Reportable 10/24/19 06:30 Malaria parasites Not Reportable 10/24/19 06:30 Librado Bodies Not Reportable 10/24/19 06:30 Hem Pathologist Commnt No 10/24/19 06:30 PT 13.9 Sec. (12.2-14.9) 10/23/19 15:54 INR 1.08 (0.87-1.13) 10/23/19 15:54 APTT 23.9 Sec. (24.2-36.6) L 10/23/19 15:54 D-Dimer > 09268 ng/mlDDU (0-234) H 10/23/19 13:35 Sodium 138 mmol/L (137-145) 10/24/19 06:30 Potassium 3.7 mmol/L (3.6-5.0) 10/24/19 06:30 Chloride 99.7 mmol/L (98-107) 10/24/19 06:30 Carbon Dioxide 25 mmol/L (22-30) 10/24/19 06:30 Anion Gap 17 mmol/L 10/24/19 06:30 BUN 15 mg/dL (9-20) 10/24/19 06:30 Creatinine 1.2 mg/dL (0.8-1.5) 10/24/19 06:30 Estimated GFR > 60 ml/min 10/24/19 06:30 BUN/Creatinine Ratio 13 % 10/24/19 06:30 Glucose 104 mg/dL (75-100) H 10/24/19 06:30 Calcium 8.7 mg/dL (8.4-10.2) 10/24/19 06:30 Magnesium 1.80 mg/dL (1.7-2.3) 10/23/19 13:35 Total Bilirubin 0.60 mg/dL (0.1-1.2) 10/23/19 13:35 Direct Bilirubin < 0.2 mg/dL (0-0.2) 10/23/19 13:35 Indirect Bilirubin 0.4 mg/dL 10/23/19 13:35 AST 29 units/L (5-40) 10/23/19 13:35 ALT 27 units/L (7-56) 10/23/19 13:35 Alkaline Phosphatase 83 units/L (35-129) 10/23/19 13:35 Total Creatine Kinase 231 units/L (55-170) H 10/23/19 13:35 Troponin T < 0.010 ng/mL (0.00-0.029) 10/23/19 15:54 NT-Pro-B Natriuret Pep 114.2 pg/mL (0-900) 10/23/19 13:35 Total Protein 8.1 g/dL (6.3-8.2) 10/23/19 13:35 Albumin 3.8 g/dL (3.9-5) L 10/23/19 13:35 Albumin/Globulin Ratio 0.9 % 10/23/19 13:35 Triglycerides 178 mg/dL (2-149) H 10/24/19 06:30 Cholesterol 167 mg/dL (50-199) 10/24/19 06:30 LDL Cholesterol Direct 101 mg/dL (50-130) 10/24/19 06:30 HDL Cholesterol 43 mg/dL (40-59) 10/24/19 06:30 Cholesterol/HDL Ratio 3.88 % 10/24/19 06:30 Active Medications - Current Medications Current Medications: Generic Name Dose Route Start Last Admin Trade Name Freq PRN Reason Stop Dose Admin Acetaminophen 650 mg 10/23/19 19:48 Tylenol PO Q4H PRN Pain MILD(1-3)/Fever >100.5/DIAZ Albuterol 2.5 mg 10/23/19 19:48 10/24/19 05:06 Proventil IH 2.5 mg Q3HRT PRN Administration Shortness Of Breath Aspirin 81 mg 10/24/19 10:00 10/24/19 10:39 Halfprin Ec PO 81 mg QDAY CHERYL Administration Atenolol 25 mg 10/24/19 10:00 10/24/19 10:39 Tenormin PO 25 mg DAILY CHERYL Administration Atorvastatin Calcium 40 mg 10/23/19 22:00 10/24/19 00:39 Lipitor PO 40 mg QHS CHERYL Administration Bupropion HCl 300 mg 10/24/19 10:00 10/24/19 10:38 Wellbutrin Xl PO 300 mg QDAY CHERYL Administration Enoxaparin Sodium 120 mg 10/24/19 06:00 10/24/19 06:32 Enoxaparin SUB-Q 120 mg Q12H CHERYL Administration Finasteride 5 mg 10/24/19 10:00 10/24/19 10:39 Proscar PO 5 mg QDAY CHERYL Administration Fluoxetine HCl 20 mg 10/24/19 10:00 10/24/19 10:38 Prozac PO 20 mg QDAY CHERYL Administration Ondansetron HCl 4 mg 10/23/19 19:48 Zofran IV Q8H PRN Nausea And Vomiting Oxycodone/Acetaminophen 1 tab 10/23/19 20:35 10/24/19 00:39 Percocet 5/325 PO 1 tab Q6H PRN Administration Pain, Moderate (4-6) Pantoprazole Sodium 20 mg 10/24/19 10:00 10/24/19 10:38 Protonix PO 20 mg QDAY CHERYL Administration Sodium Chloride 10 ml 10/23/19 22:00 10/24/19 10:39 Sodium Chloride Flush Syringe 10 Ml IV 10 ml BID CHERYL Administration Sodium Chloride 10 ml 10/23/19 19:48 Sodium Chloride Flush Syringe 10 Ml IV PRN PRN LINE FLUSH
[2019-10-25] MEDS: ENOXAPARIN 120 MG/0.8 ML INJ SUB-Q SCH ×2 (05:58→17:08)
[2019-10-25] MEDS: oxyCODONE /ACETAMINOPHEN 5-325MG TAB PO PRN ×3 (06:05→21:52)
--- NOTE | 2019-10-25 08:43 | Event Note ---
Date: 10/24/[id number]
[2019-10-25] MEDS: buPROPion XL 150 MG TAB PO SCH (09:43)
[2019-10-25] MEDS: atenoloL 25 MG TAB PO SCH (09:43)
[2019-10-25] MEDS: ASPIRIN EC 81 MG TAB PO SCH (09:43)
[2019-10-25] MEDS: FINASTERIDE 5 MG TAB PO SCH (09:43)
[2019-10-25] MEDS: PANTOPRAZOLE 20 MG TAB PO SCH (09:43)
[2019-10-25] MEDS: FLUoxetine 20 MG CAP PO SCH (09:43)
--- NOTE | 2019-10-25 18:29 | Progress Note ---
Assessment and Plan Assessment and plan: 68-year-old -[place] male with history of DVT not currently on anticoagulation, hypertension, ROSALEE noncompliant CPAP, COPD, CAD status post stent 5 who presents [facility] ED with complaints of shortness of breath and left lower extremity swelling and pain x4 days. Pt had significantly elevated d-dimer, CT angiogram was performed which showed bilateral large subsegmental PE and BLE Doppler revealed LLE DVT. Patient is on therapeutic Lovenox, evaluated by vascular, no vascular intervention at this point Patient needs to be on lifelong chronic anticoagulation, hematology consult., Await recommendations --Bilateral large subsegmental PE On Lovenox 1mg/kg Vascular evaluated,No vascular intervention needed Advised lifelong anticoagulation, Hematology consulted --Left Lower Extremity DVT DVT in the left mid to distal superficial femoral vein, left popliteal vein, and left posterior tibial vein --Hx of recurrent DVT; patient needs to be on chronic anticoagulation lifelong Hematology following --HTN : Moderate control Continue current antihypertensives and when necessary medications --H/O CAD status post PCI 5 Continue current cardiac medications --Hx COPD; Oxygen titrate O2 sats to more than 90% Albuterol when necessary -- Hx ROSALEE; on CPAP noncompliant with CPAP Advised to comply with treatment --DVT PPX: on full dose Lovenox --Full CODE STATUS Follow hematology evaluation and recommendations Possible discharge home tomorrow on oral anti-coagulants 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 History Interval history: Patient seen and examined medical records reviewed Feels better mild chest pain no shortness of breath Vital signs reviewed On full dose Lovenox Hospitalist Physical - Constitutional Vitals: Temp Pulse Resp BP Pulse Ox 98.1 F 57 L 18 120/93 96 10/25/19 11:27 10/25/19 11:27 10/25/19 11:27 10/25/19 15:02 10/25/19 11:27 General appearance: Present: no acute distress, well-nourished, obese - EENT Eyes: Present: PERRL, EOM intact - Neck Neck: Present: supple, normal ROM - Respiratory Respiratory effort: normal Respiratory: bilateral: diminished, negative: rales, rhonchi, wheezing - Cardiovascular Rhythm: regular Heart Sounds: Present: S1 & S2 - Extremities Extremities: no ischemia, No edema - Abdominal General gastrointestinal: soft, non-tender, non-distended, normal bowel sounds - Integumentary Integumentary: Present: clear, warm - Psychiatric Psychiatric: appropriate mood/affect, cooperative - Neurologic Neurologic: moves all extremities Results - Labs CBC & Chem 7: 10/24/19 06:30 10/24/19 06:30 Labs: Laboratory Last Values WBC 6.2 K/mm3 (4.5-11.0) 10/24/19 06:30 RBC 5.32 M/mm3 (3.65-5.03) H 10/24/19 06:30 Hgb 16.2 gm/dl (11.8-15.2) H 10/24/19 06:30 Hct 48.3 % (35.5-45.6) H 10/24/19 06:30 MCV 91 fl (84-94) 10/24/19 06:30 MCH 30 pg (28-32) 10/24/19 06:30 MCHC 34 % (32-34) 10/24/19 06:30 RDW 14.4 % (13.2-15.2) 10/24/19 06:30 Plt Count 148 K/mm3 (140-440) 10/24/19 06:30 Lymph % (Auto) 31.0 % (13.4-35.0) 10/23/19 13:35 [place] % (Auto) Arbor[place] 10/24/19 06:30 Eos % (Auto) 1.2 % (0.0-4.3) 10/23/19 13:35 Baso % (Auto) 0.6 % (0.0-1.8) 10/23/19 13:35 Lymph # 2.3 K/mm3 (1.2-5.4) 10/23/19 13:35 [place] # 1.0 K/mm3 (0.0-0.8) H 10/23/19 13:35 Eos # 0.1 K/mm3 (0.0-0.4) 10/23/19 13:35 Baso # 0.0 K/mm3 (0.0-0.1) 10/23/19 13:35 Add Manual Diff Complete 10/24/19 06:30 Total Counted 100 10/24/19 06:30 Seg Neutrophils % 54.0 % (40.0-70.0) 10/23/19 13:35 Seg Neuts % (Manual) 44.0 % (40.0-70.0) 10/24/19 06:30 Band Neutrophils % 0 % 10/24/19 06:30 Lymphocytes % (Manual) 43.0 % (13.4-35.0) H 10/24/19 06:30 Reactive Lymphs % (Man) 0 % 10/24/19 06:30 Monocytes % (Manual) 11.0 % (0.0-7.3) H 10/24/19 06:30 Eosinophils % (Manual) 2.0 % (0.0-4.3) 10/24/19 06:30 Basophils % (Manual) 0 % (0.0-1.8) 10/24/19 06:30 Metamyelocytes % 0 % 10/24/19 06:30 Myelocytes % 0 % 10/24/19 06:30 Promyelocytes % 0 % 10/24/19 06:30 Blast Cells % 0 % 10/24/19 06:30 Nucleated RBC % Not Reportable 10/24/19 06:30 Seg Neutrophils # 4.0 K/mm3 (1.8-7.7) 10/23/19 13:35 Seg Neutrophils # Man 2.7 K/mm3 (1.8-7.7) 10/24/19 06:30 Band Neutrophils # 0.0 K/mm3 10/24/19 06:30 Lymphocytes # (Manual) 2.7 K/mm3 (1.2-5.4) 10/24/19 06:30 Abs React Lymphs (Man) 0.0 K/mm3 10/24/19 06:30 Monocytes # (Manual) 0.7 K/mm3 (0.0-0.8) 10/24/19 06:30 Eosinophils # (Manual) 0.1 K/mm3 (0.0-0.4) 10/24/19 06:30 Basophils # (Manual) 0.0 K/mm3 (0.0-0.1) 10/24/19 06:30 Metamyelocytes # 0.0 K/mm3 10/24/19 06:30 Myelocytes # 0.0 K/mm3 10/24/19 06:30 Promyelocytes # 0.0 K/mm3 10/24/19 06:30 Blast Cells # 0.0 K/mm3 10/24/19 06:30 WBC Morphology Not Reportable 10/24/19 06:30 Hypersegmented Neuts Not Reportable 10/24/19 06:30 Hyposegmented Neuts Not Reportable 10/24/19 06:30 Hypogranular Neuts Not Reportable 10/24/19 06:30 Smudge Cells Not Reportable 10/24/19 06:30 Toxic Granulation Not Reportable 10/24/19 06:30 Toxic Vacuolation Not Reportable 10/24/19 06:30 Dohle Bodies Not Reportable 10/24/19 06:30 Pelger-Huet Anomaly Not Reportable 10/24/19 06:30 Faby Rods Not Reportable 10/24/19 06:30 Platelet Estimate Consistent w auto 10/24/19 06:30 Clumped Platelets Not Reportable 10/24/19 06:30 Plt Clumps, EDTA Not Reportable 10/24/19 06:30 Large Platelets Not Reportable 10/24/19 06:30 Giant Platelets Not Reportable 10/24/19 06:30 Platelet Satelliting Not Reportable 10/24/19 06:30 Plt Morphology Comment Not Reportable 10/24/19 06:30 RBC Morphology Normal 10/24/19 06:30 Dimorphic RBCs Not Reportable 10/24/19 06:30 Polychromasia Not Reportable 10/24/19 06:30 Hypochromasia Not Reportable 10/24/19 06:30 Poikilocytosis Not Reportable 10/24/19 06:30 Anisocytosis Not Reportable 10/24/19 06:30 Microcytosis Not Reportable 10/24/19 06:30 Macrocytosis Not Reportable 10/24/19 06:30 Spherocytes Not Reportable 10/24/19 06:30 Pappenheimer Bodies Not Reportable 10/24/19 06:30 Sickle Cells Not Reportable 10/24/19 06:30 Target Cells Not Reportable 10/24/19 06:30 Tear Drop Cells Not Reportable 10/24/19 06:30 Ovalocytes Not Reportable 10/24/19 06:30 Helmet Cells Not Reportable 10/24/19 06:30 [place] Bodies Not Reportable 10/24/19 06:30 [place] Rings Not Reportable 10/24/19 06:30 [place] Cells Not Reportable 10/24/19 06:30 Bite Cells Not Reportable 10/24/19 06:30 Crenated Cell Not Reportable 10/24/19 06:30 Elliptocytes Not Reportable 10/24/19 06:30 Acanthocytes (Spur) Not Reportable 10/24/19 06:30 Rouleaux Not Reportable 10/24/19 06:30 Hemoglobin C Crystals Not Reportable 10/24/19 06:30 Schistocytes Not Reportable 10/24/19 06:30 Malaria parasites Not Reportable 10/24/19 06:30 Librado Bodies Not Reportable 10/24/19 06:30 Hem Pathologist Commnt No 10/24/19 06:30 PT 13.9 Sec. (12.2-14.9) 10/23/19 15:54 INR 1.08 (0.87-1.13) 10/23/19 15:54 APTT 23.9 Sec. (24.2-36.6) L 10/23/19 15:54 D-Dimer > 18231 ng/mlDDU (0-234) H 10/23/19 13:35 Sodium 138 mmol/L (137-145) 10/24/19 06:30 Potassium 3.7 mmol/L (3.6-5.0) 10/24/19 06:30 Chloride 99.7 mmol/L (98-107) 10/24/19 06:30 Carbon Dioxide 25 mmol/L (22-30) 10/24/19 06:30 Anion Gap 17 mmol/L 10/24/19 06:30 BUN 15 mg/dL (9-20) 10/24/19 06:30 Creatinine 1.2 mg/dL (0.8-1.5) 10/24/19 06:30 Estimated GFR > 60 ml/min 10/24/19 06:30 BUN/Creatinine Ratio 13 % 10/24/19 06:30 Glucose 104 mg/dL (75-100) H 10/24/19 06:30 Calcium 8.7 mg/dL (8.4-10.2) 10/24/19 06:30 Magnesium 1.80 mg/dL (1.7-2.3) 10/23/19 13:35 Total Bilirubin 0.60 mg/dL (0.1-1.2) 10/23/19 13:35 Direct Bilirubin < 0.2 mg/dL (0-0.2) 10/23/19 13:35 Indirect Bilirubin 0.4 mg/dL 10/23/19 13:35 AST 29 units/L (5-40) 10/23/19 13:35 ALT 27 units/L (7-56) 10/23/19 13:35 Alkaline Phosphatase 83 units/L (35-129) 10/23/19 13:35 Total Creatine Kinase 231 units/L (55-170) H 10/23/19 13:35 Troponin T < 0.010 ng/mL (0.00-0.029) 10/23/19 15:54 NT-Pro-B Natriuret Pep 114.2 pg/mL (0-900) 10/23/19 13:35 Total Protein 8.1 g/dL (6.3-8.2) 10/23/19 13:35 Albumin 3.8 g/dL (3.9-5) L 10/23/19 13:35 Albumin/Globulin Ratio 0.9 % 10/23/19 13:35 Triglycerides 178 mg/dL (2-149) H 10/24/19 06:30 Cholesterol 167 mg/dL (50-199) 10/24/19 06:30 LDL Cholesterol Direct 101 mg/dL (50-130) 10/24/19 06:30 HDL Cholesterol 43 mg/dL (40-59) 10/24/19 06:30 Cholesterol/HDL Ratio 3.88 % 10/24/19 06:30 Active Medications - Current Medications Current Medications: Generic Name Dose Route Start Last Admin Trade Name Freq PRN Reason Stop Dose Admin Acetaminophen 650 mg 10/23/19 19:48 Tylenol PO Q4H PRN Pain MILD(1-3)/Fever >100.5/DIAZ Albuterol 2.5 mg 10/23/19 19:48 10/24/19 05:06 Proventil IH 2.5 mg Q3HRT PRN Administration Shortness Of Breath Aspirin 81 mg 10/24/19 10:00 10/25/19 09:43 Halfprin Ec PO 81 mg QDAY CHERYL Administration Atenolol 25 mg 10/24/19 10:00 10/25/19 09:43 Tenormin PO 25 mg DAILY CHERYL Administration Atorvastatin Calcium 40 mg 10/23/19 22:00 10/24/19 22:06 Lipitor PO 40 mg QHS CHERYL Administration Bupropion HCl 300 mg 10/24/19 10:00 10/25/19 09:43 Wellbutrin Xl PO 300 mg QDAY CHERYL Administration Enoxaparin Sodium 120 mg 10/24/19 06:00 10/25/19 17:08 Enoxaparin SUB-Q 120 mg Q12H CHERYL Administration Finasteride 5 mg 10/24/19 10:00 10/25/19 09:43 Proscar PO 5 mg QDAY CHERYL Administration Fluoxetine HCl 20 mg 10/24/19 10:00 10/25/19 09:43 Prozac PO 20 mg QDAY CHERYL Administration Ondansetron HCl 4 mg 10/23/19 19:48 Zofran IV Q8H PRN Nausea And Vomiting Oxycodone/Acetaminophen 1 tab 10/23/19 20:35 10/25/19 15:02 Percocet 5/325 PO 1 tab Q6H PRN Administration Pain, Moderate (4-6) Pantoprazole Sodium 20 mg 10/24/19 10:00 10/25/19 09:43 Protonix PO 20 mg QDAY CHERYL Administration Sodium Chloride 10 ml 10/23/19 22:00 10/25/19 09:43 Sodium Chloride Flush Syringe 10 Ml IV 10 ml BID CHERYL Administration Sodium Chloride 10 ml 10/23/19 19:48 Sodium Chloride Flush Syringe 10 Ml IV PRN PRN LINE FLUSH
--- NOTE | 2019-10-25 21:22 | Consultation ---
REFERRED BY: Dr. Horan. REASON FOR CONSULTATION: DVT and PE. HISTORY OF PRESENT ILLNESS: I saw the patient, a 58-year-old male, in the medical floor. The patient was living in [place] a few years ago when he had a DVT episode. He was placed on anticoagulation and then later he moved to [place]. From [place], he recently drove all the way to [place] a few weeks ago. The patient has history of hypertension, obstructive sleep apnea, noncompliant with CPAP, COPD, coronary artery disease, status post stent, came to the hospital because of shortness of breath and left leg swelling for 4 days. In the past, he was on Coumadin which he took for a few years. No history of tobacco usage. During this admission, Lovenox has been started. I have been asked to evaluate the patient. At this time, no headache, no visual disturbances. No ear discharge. History of shortness of breath. History of left leg swelling present. No abdominal pain, no vomiting, no diarrhea, no hematemesis, no hematochezia, no fever. PAST MEDICAL HISTORY: As above, DVT, PE while he was in [place] a few years ago and he took Coumadin for a few years. SURGICAL HISTORY: Stent placement. SOCIAL HISTORY: Lives with girlfriend. History of occasional marijuana usage and alcohol usage. No history of smoking. FAMILY HISTORY: Noncontributory. ALLERGIES: IBUPROFEN. HOME MEDICATIONS: Included atorvastatin, aspirin. PHYSICAL EXAMINATION: VITAL SIGNS: Temperature 98, pulse 64, respirations 18, BP 115/94. GENERAL: Obese male. HEENT: No pallor, no icterus. NECK: No neck lymph nodes. HEART: S1, S2. LUNGS: Clear to auscultation. ABDOMEN: Soft. EXTREMITIES: Leg swelling present. NEUROLOGIC: Alert, awake, oriented. LABORATORY DATA: White cell 6, hemoglobin 16, MCV is 91, platelets 148. Potassium 3.7. D-dimer was more than 10,000. Creatinine 1.2, calcium 8.7, bilirubin 0.2. RADIOLOGY DATA: CTA chest, numerous pulmonary emboli involving bilateral lobar arteries, large burden of PE. No saddle embolus. Leg Doppler, left mid to distal superficial femoral vein and popliteal vein DVT. ASSESSMENT AND PLAN: 1. Left femoral vein deep vein thrombosis. 2. Bilateral large clot burden pulmonary embolus. No saddle embolus. 3. History of previous thrombosis in [place] about 6 years ago for which he was on warfarin. 4. I discussed with the patient regarding continuation of Lovenox for now and then changing to Eliquis versus Xarelto versus Coumadin. He was on Coumadin in the past. He is as yet to find a primary care here. 5. History of hypertension. 6. History of sleep apnea. 7. History of coronary artery disease, status post stent. 8. History of chronic obstructive pulmonary disease. 9. Outpatient workup for hypercoagulable testing will be done. As it is his second DVT, he would need long-term anticoagulation. JOB# [id number] KINGS/SRINIVAS
[2019-10-26] MEDS: ENOXAPARIN 120 MG/0.8 ML INJ SUB-Q SCH (06:16)
--- NOTE | 2019-10-26 07:56 | Hem/Onc Progress Note ---
Assessment and Plan 1. Left femoral vein deep vein thrombosis. 2. Bilateral large clot burden pulmonary embolus. No saddle embolus. 3. History of previous thrombosis in [place] about 6 years ago for which he was on warfarin. 4. I discussed with the patient regarding continuation of Lovenox for now and then changing to Eliquis versus Xarelto versus Coumadin. He was on Coumadin in the past. He is as yet to find a primary care here. 5. History of hypertension. 6. History of sleep apnea. 7. History of coronary artery disease, status post stent. 8. History of chronic obstructive pulmonary disease. 9. Outpatient workup for hypercoagulable testing will be done. As it is his second DVT, he would need long-term anticoagulation. d/w dr Horan OP follow up an option - Patient Problems (1) Pulmonary embolism Status: Acute Qualifiers: Pulmonary embolism type: other Chronicity: acute Acute cor pulmonale presence: unspecified Qualified Code(s): I26.99 - Other pulmonary embolism without acute cor pulmonale Subjective Date of service: 10/26/19 Principal diagnosis: DVT- PE Interval history: feeling better less SOB Objective - Exam Narrative Exam: Pain - none General appearance - no distress Performance status limited self care Eyes - no icterus ENT - on o2 LNs cervical not palpable Neck - no LN Respiratory Normal Breath sounds - CTA anteriorly CVS S1 S2 + Extremities + edema General GI Soft Rectal deferred male - deferred Skin warm Musculoskeletal - moving limbs Neurologically alert awake - Constitutional Vitals: Last Vital Signs Temp 98.7 F 10/26/19 05:11 Pulse 55 L 10/26/19 05:11 Resp 20 10/26/19 05:11 BP 130/76 10/26/19 05:11 Pulse Ox 98 10/26/19 05:11 Medications & Allergies - Medications Allergies/Adverse Reactions: Allergies ibuprofen Allergy (Verified 10/23/19 11:40) Unknown Home Medications: Home Medications Medication Instructions Recorded Confirmed Last Taken Type Aspirin [Adult Aspirin] 81 mg PO QDAY 10/23/19 10/23/19 Unknown History Atenolol [Tenormin] 25 mg PO DAILY 10/23/19 10/23/19 Unknown History AtorvaSTATin [Lipitor] 80 mg PO QHS 10/23/19 10/23/19 Unknown History FLUoxetine [PROzac] 20 mg PO QDAY 10/23/19 10/23/19 Unknown History Finasteride 5 mg PO QDAY 10/23/19 10/23/19 Unknown History Omeprazole 20 mg PO QDAY 10/23/19 10/23/19 Unknown History buPROPion [Wellbutrin] 300 mg PO QDAY 10/23/19 10/23/19 Unknown History Baclofen 10/24/19 10/23/19 10:00 History Gabapentin [Neurontin] 1 tab PO Q8HR PRN 10/24/19 10/24/19 10/23/19 10:00 History Vitamin D3 1,000 UNIT TAB 1 tab PO DAILY 10/24/19 10/24/19 10/23/19 10:00 History Apixaban [Eliquis] 2 tab PO Q12HR #26 tablet 10/26/19 Unknown Rx Apixaban [Eliquis] 5 mg PO Q12HR #42 tablet 10/26/19 Unknown Rx Active Medications: Generic Name Dose Route Start Last Admin Trade Name Freq PRN Reason Stop Dose Admin Acetaminophen 650 mg 10/23/19 19:48 Tylenol PO Q4H PRN Pain MILD(1-3)/Fever >100.5/DIAZ Albuterol 2.5 mg 10/23/19 19:48 10/24/19 05:06 Proventil IH 2.5 mg Q3HRT PRN Administration Shortness Of Breath Aspirin 81 mg 10/24/19 10:00 10/25/19 09:43 Halfprin Ec PO 81 mg QDAY CHERYL Administration Atenolol 25 mg 10/24/19 10:00 10/25/19 09:43 Tenormin PO 25 mg DAILY CHERYL Administration Atorvastatin Calcium 40 mg 10/23/19 22:00 10/25/19 21:20 Lipitor PO 40 mg QHS CHERYL Administration Bupropion HCl 300 mg 10/24/19 10:00 10/25/19 09:43 Wellbutrin Xl PO 300 mg QDAY CHERYL Administration Enoxaparin Sodium 120 mg 10/24/19 06:00 10/26/19 06:16 Enoxaparin SUB-Q 120 mg Q12H CHERYL Administration Finasteride 5 mg 10/24/19 10:00 10/25/19 09:43 Proscar PO 5 mg QDAY CHERYL Administration Fluoxetine HCl 20 mg 10/24/19 10:00 10/25/19 09:43 Prozac PO 20 mg QDAY CHERYL Administration Ondansetron HCl 4 mg 10/23/19 19:48 Zofran IV Q8H PRN Nausea And Vomiting Oxycodone/Acetaminophen 1 tab 10/23/19 20:35 10/25/19 21:52 Percocet 5/325 PO 1 tab Q6H PRN Administration Pain, Moderate (4-6) Pantoprazole Sodium 20 mg 10/24/19 10:00 10/25/19 09:43 Protonix PO 20 mg QDAY CHERYL Administration Sodium Chloride 10 ml 10/23/19 22:00 10/25/19 21:20 Sodium Chloride Flush Syringe 10 Ml IV 10 ml BID CHERYL Administration Sodium Chloride 10 ml 10/23/19 19:48 Sodium Chloride Flush Syringe 10 Ml IV PRN PRN LINE FLUSH
--- NOTE | 2019-10-26 08:14 | Progress Note ---
Hospitalist Physical - Constitutional Vitals: Temp Pulse Resp BP Pulse Ox 98.7 F 55 L 20 130/76 98 10/26/19 05:11 10/26/19 05:11 10/26/19 05:11 10/26/19 05:11 10/26/19 05:11 General appearance: Present: no acute distress, well-nourished, obese Results - Labs CBC & Chem 7: 10/24/19 06:30 10/24/19 06:30 Labs: Laboratory Last Values WBC 6.2 K/mm3 (4.5-11.0) 10/24/19 06:30 RBC 5.32 M/mm3 (3.65-5.03) H 10/24/19 06:30 Hgb 16.2 gm/dl (11.8-15.2) H 10/24/19 06:30 Hct 48.3 % (35.5-45.6) H 10/24/19 06:30 MCV 91 fl (84-94) 10/24/19 06:30 MCH 30 pg (28-32) 10/24/19 06:30 MCHC 34 % (32-34) 10/24/19 06:30 RDW 14.4 % (13.2-15.2) 10/24/19 06:30 Plt Count 148 K/mm3 (140-440) 10/24/19 06:30 Lymph % (Auto) 31.0 % (13.4-35.0) 10/23/19 13:35 [place] % (Auto) Milling Machinist 10/24/19 06:30 Eos % (Auto) 1.2 % (0.0-4.3) 10/23/19 13:35 Baso % (Auto) 0.6 % (0.0-1.8) 10/23/19 13:35 Lymph # 2.3 K/mm3 (1.2-5.4) 10/23/19 13:35 [place] # 1.0 K/mm3 (0.0-0.8) H 10/23/19 13:35 Eos # 0.1 K/mm3 (0.0-0.4) 10/23/19 13:35 Baso # 0.0 K/mm3 (0.0-0.1) 10/23/19 13:35 Add Manual Diff Complete 10/24/19 06:30 Total Counted 100 10/24/19 06:30 Seg Neutrophils % 54.0 % (40.0-70.0) 10/23/19 13:35 Seg Neuts % (Manual) 44.0 % (40.0-70.0) 10/24/19 06:30 Band Neutrophils % 0 % 10/24/19 06:30 Lymphocytes % (Manual) 43.0 % (13.4-35.0) H 10/24/19 06:30 Reactive Lymphs % (Man) 0 % 10/24/19 06:30 Monocytes % (Manual) 11.0 % (0.0-7.3) H 10/24/19 06:30 Eosinophils % (Manual) 2.0 % (0.0-4.3) 10/24/19 06:30 Basophils % (Manual) 0 % (0.0-1.8) 10/24/19 06:30 Metamyelocytes % 0 % 10/24/19 06:30 Myelocytes % 0 % 10/24/19 06:30 Promyelocytes % 0 % 10/24/19 06:30 Blast Cells % 0 % 10/24/19 06:30 Nucleated RBC % Not Reportable 10/24/19 06:30 Seg Neutrophils # 4.0 K/mm3 (1.8-7.7) 10/23/19 13:35 Seg Neutrophils # Man 2.7 K/mm3 (1.8-7.7) 10/24/19 06:30 Band Neutrophils # 0.0 K/mm3 10/24/19 06:30 Lymphocytes # (Manual) 2.7 K/mm3 (1.2-5.4) 10/24/19 06:30 Abs React Lymphs (Man) 0.0 K/mm3 10/24/19 06:30 Monocytes # (Manual) 0.7 K/mm3 (0.0-0.8) 10/24/19 06:30 Eosinophils # (Manual) 0.1 K/mm3 (0.0-0.4) 10/24/19 06:30 Basophils # (Manual) 0.0 K/mm3 (0.0-0.1) 10/24/19 06:30 Metamyelocytes # 0.0 K/mm3 10/24/19 06:30 Myelocytes # 0.0 K/mm3 10/24/19 06:30 Promyelocytes # 0.0 K/mm3 10/24/19 06:30 Blast Cells # 0.0 K/mm3 10/24/19 06:30 WBC Morphology Not Reportable 10/24/19 06:30 Hypersegmented Neuts Not Reportable 10/24/19 06:30 Hyposegmented Neuts Not Reportable 10/24/19 06:30 Hypogranular Neuts Not Reportable 10/24/19 06:30 Smudge Cells Not Reportable 10/24/19 06:30 Toxic Granulation Not Reportable 10/24/19 06:30 Toxic Vacuolation Not Reportable 10/24/19 06:30 Dohle Bodies Not Reportable 10/24/19 06:30 Pelger-Huet Anomaly Not Reportable 10/24/19 06:30 Faby Rods Not Reportable 10/24/19 06:30 Platelet Estimate Consistent w auto 10/24/19 06:30 Clumped Platelets Not Reportable 10/24/19 06:30 Plt Clumps, EDTA Not Reportable 10/24/19 06:30 Large Platelets Not Reportable 10/24/19 06:30 Giant Platelets Not Reportable 10/24/19 06:30 Platelet Satelliting Not Reportable 10/24/19 06:30 Plt Morphology Comment Not Reportable 10/24/19 06:30 RBC Morphology Normal 10/24/19 06:30 Dimorphic RBCs Not Reportable 10/24/19 06:30 Polychromasia Not Reportable 10/24/19 06:30 Hypochromasia Not Reportable 10/24/19 06:30 Poikilocytosis Not Reportable 10/24/19 06:30 Anisocytosis Not Reportable 10/24/19 06:30 Microcytosis Not Reportable 10/24/19 06:30 Macrocytosis Not Reportable 10/24/19 06:30 Spherocytes Not Reportable 10/24/19 06:30 Pappenheimer Bodies Not Reportable 10/24/19 06:30 Sickle Cells Not Reportable 10/24/19 06:30 Target Cells Not Reportable 10/24/19 06:30 Tear Drop Cells Not Reportable 10/24/19 06:30 Ovalocytes Not Reportable 10/24/19 06:30 Helmet Cells Not Reportable 10/24/19 06:30 [place] Bodies Not Reportable 10/24/19 06:30 [place] Rings Not Reportable 10/24/19 06:30 [place] Cells Not Reportable 10/24/19 06:30 Bite Cells Not Reportable 10/24/19 06:30 Crenated Cell Not Reportable 10/24/19 06:30 Elliptocytes Not Reportable 10/24/19 06:30 Acanthocytes (Spur) Not Reportable 10/24/19 06:30 Rouleaux Not Reportable 10/24/19 06:30 Hemoglobin C Crystals Not Reportable 10/24/19 06:30 Schistocytes Not Reportable 10/24/19 06:30 Malaria parasites Not Reportable 10/24/19 06:30 Librado Bodies Not Reportable 10/24/19 06:30 Hem Pathologist Commnt No 10/24/19 06:30 PT 13.9 Sec. (12.2-14.9) 10/23/19 15:54 INR 1.08 (0.87-1.13) 10/23/19 15:54 APTT 23.9 Sec. (24.2-36.6) L 10/23/19 15:54 D-Dimer > 13883 ng/mlDDU (0-234) H 10/23/19 13:35 Sodium 138 mmol/L (137-145) 10/24/19 06:30 Potassium 3.7 mmol/L (3.6-5.0) 10/24/19 06:30 Chloride 99.7 mmol/L (98-107) 10/24/19 06:30 Carbon Dioxide 25 mmol/L (22-30) 10/24/19 06:30 Anion Gap 17 mmol/L 10/24/19 06:30 BUN 15 mg/dL (9-20) 10/24/19 06:30 Creatinine 1.2 mg/dL (0.8-1.5) 10/24/19 06:30 Estimated GFR > 60 ml/min 10/24/19 06:30 BUN/Creatinine Ratio 13 % 10/24/19 06:30 Glucose 104 mg/dL (75-100) H 10/24/19 06:30 Calcium 8.7 mg/dL (8.4-10.2) 10/24/19 06:30 Magnesium 1.80 mg/dL (1.7-2.3) 10/23/19 13:35 Total Bilirubin 0.60 mg/dL (0.1-1.2) 10/23/19 13:35 Direct Bilirubin < 0.2 mg/dL (0-0.2) 10/23/19 13:35 Indirect Bilirubin 0.4 mg/dL 10/23/19 13:35 AST 29 units/L (5-40) 10/23/19 13:35 ALT 27 units/L (7-56) 10/23/19 13:35 Alkaline Phosphatase 83 units/L (35-129) 10/23/19 13:35 Total Creatine Kinase 231 units/L (55-170) H 10/23/19 13:35 Troponin T < 0.010 ng/mL (0.00-0.029) 10/23/19 15:54 NT-Pro-B Natriuret Pep 114.2 pg/mL (0-900) 10/23/19 13:35 Total Protein 8.1 g/dL (6.3-8.2) 10/23/19 13:35 Albumin 3.8 g/dL (3.9-5) L 10/23/19 13:35 Albumin/Globulin Ratio 0.9 % 10/23/19 13:35 Triglycerides 178 mg/dL (2-149) H 10/24/19 06:30 Cholesterol 167 mg/dL (50-199) 10/24/19 06:30 LDL Cholesterol Direct 101 mg/dL (50-130) 10/24/19 06:30 HDL Cholesterol 43 mg/dL (40-59) 10/24/19 06:30 Cholesterol/HDL Ratio 3.88 % 10/24/19 06:30 Active Medications - Current Medications Current Medications: Generic Name Dose Route Start Last Admin Trade Name Freq PRN Reason Stop Dose Admin Acetaminophen 650 mg 10/23/19 19:48 Tylenol PO Q4H PRN Pain MILD(1-3)/Fever >100.5/DIAZ Albuterol 2.5 mg 10/23/19 19:48 10/24/19 05:06 Proventil IH 2.5 mg Q3HRT PRN Administration Shortness Of Breath Apixaban 10 mg 10/26/19 10:00 Eliquis PO 11/01/19 22:01 Q12HR CHERYL Protocol Aspirin 81 mg 10/24/19 10:00 10/25/19 09:43 Halfprin Ec PO 81 mg QDAY CHERYL Administration Atenolol 25 mg 10/24/19 10:00 10/25/19 09:43 Tenormin PO 25 mg DAILY CHERYL Administration Atorvastatin Calcium 40 mg 10/23/19 22:00 10/25/19 21:20 Lipitor PO 40 mg QHS CHERYL Administration Bupropion HCl 300 mg 10/24/19 10:00 10/25/19 09:43 Wellbutrin Xl PO 300 mg QDAY CHERYL Administration Finasteride 5 mg 10/24/19 10:00 10/25/19 09:43 Proscar PO 5 mg QDAY CHERYL Administration Fluoxetine HCl 20 mg 10/24/19 10:00 10/25/19 09:43 Prozac PO 20 mg QDAY CHERYL Administration Ondansetron HCl 4 mg 10/23/19 19:48 Zofran IV Q8H PRN Nausea And Vomiting Oxycodone/Acetaminophen 1 tab 10/23/19 20:35 10/25/19 21:52 Percocet 5/325 PO 1 tab Q6H PRN Administration Pain, Moderate (4-6) Pantoprazole Sodium 20 mg 10/24/19 10:00 10/25/19 09:43 Protonix PO 20 mg QDAY CHERYL Administration Sodium Chloride 10 ml 10/23/19 22:00 10/25/19 21:20 Sodium Chloride Flush Syringe 10 Ml IV 10 ml BID CHERYL Administration Sodium Chloride 10 ml 10/23/19 19:48 Sodium Chloride Flush Syringe 10 Ml IV PRN PRN LINE FLUSH
[2019-10-26] MEDS ORDERED: APIXABAN 5 MG TAB PO SCH (10:00)
[2019-10-26] MEDS: FINASTERIDE 5 MG TAB PO SCH (10:51)
[2019-10-26] MEDS: buPROPion XL 150 MG TAB PO SCH (10:51)
[2019-10-26] MEDS: PANTOPRAZOLE 20 MG TAB PO SCH (10:52)
[2019-10-26] MEDS: atenoloL 25 MG TAB PO SCH (10:52)
[2019-10-26] MEDS: FLUoxetine 20 MG CAP PO SCH (10:52)
[2019-10-26] MEDS: ASPIRIN EC 81 MG TAB PO SCH (10:52)
[2019-10-26 12:57] VITALS: BP 125/89
--- NOTE | 2019-10-26 14:24 | Discharge Summary ---
Providers - Providers Date of Admission: 10/23/19 18:40 Date of discharge: 10/26/19 Attending physician: FRITZ MANDUJANO 10/23/19 18:43 Consult to Physician [CONS] Stat Comment: Consulting Provider: LUCIA BAXTER Physician Instructions: Reason For Exam: PE, DVT 10/23/19 20:58 Consult to Physician [CONS] Routine Comment: Consulting Provider: LEONARD AHUMADA Physician Instructions: Reason For Exam: Bilateral PE and LLE DVT Primary care physician: DOMESTIC TECHNICIAN Hospitalization Reason for admission: Shortness of breath/LE swellng.Acute PE/DVT Condition: Stable Pertinent studies: CTA chest LE doppler ECHO CXR Hospital course: 59-year-old -Turkish male with history of DVT not currently on anticoagulation, hypertension, ROSALEE noncompliant CPAP, COPD, CAD status post stent 5 was admitted through [facility] with worsening shortness of breath and left lower extremity swelling and pain x4 days. Pt had significantly elevated d- dimer, CT angiogram was performed which showed bilateral large subsegmental PE and BLE Doppler revealed LLE DVT. Patient is on therapeutic Lovenox, evaluated by vascular, no vascular intervention at this point.Patient needs to be on lifelong chronic anticoagulation, hematology evaluated. Anticoagulants transitioned to oral anticoagulants. Cleared by hemat for dc and f/u per schedule. --Bilateral large subsegmental PE On Lovenox 1mg/kg Vascular evaluated,No vascular intervention needed Advised lifelong anticoagulation, Hematology consulted --Left Lower Extremity DVT DVT in the left mid to distal superficial femoral vein, left popliteal vein, and left posterior tibial vein --Hx of recurrent DVT; patient needs to be on chronic anticoagulation lifelong Hematology following --HTN : Moderate control Continue current antihypertensives and when necessary medications --H/O CAD status post PCI 5 Continue current cardiac medications --Hx COPD :Oxygen titrate O2 sats to more than 90% Albuterol when necessary -- Hx ROSALEE; on CPAP noncompliant with CPAP Advised to comply with treatment --DVT PPX: on full dose Lovenox --Full CODE STATUS Patient is stable at discharge Disposition: DC- TO HOME OR SELFCARE Time spent for discharge: 32 min Core Measure Documentation - Palliative Care Palliative Care/ Comfort Measures: Not Applicable - Core Measures Any of the following diagnoses?: DVT/PE - VTE Discharge Requirements Deep Vein Thrombosis/Pulmonary Embolism Present on Admission: Yes Has pt received <5 days of overlap therapy or INR<2.0: No (on Eliquis) Anticoagulant overlap therapy prescribed at discharge: No Contraindication No Overlap Therapy order at DC: Not Indicated (on Eliquis) Exam - Constitutional Vitals: Temp Pulse Resp BP Pulse Ox 98.5 F 57 L 20 125/89 97 10/26/19 12:00 10/26/19 12:00 10/26/19 12:00 10/26/19 12:00 10/26/19 12:00 General appearance: Present: no acute distress, well-nourished, obese - EENT Eyes: Present: PERRL, EOM intact - Neck Neck: Present: supple, normal ROM - Respiratory Respiratory effort: normal Respiratory: bilateral: diminished, negative: rales, rhonchi, wheezing - Cardiovascular Rhythm: regular Heart Sounds: Present: S1 & S2 - Extremities Extremities: no ischemia, No edema - Abdominal General gastrointestinal: Present: soft, non-tender, non-distended, normal bowel sounds - Integumentary Integumentary: Present: clear, warm - Musculoskeletal Musculoskeletal: strength equal bilaterally - Psychiatric Psychiatric: appropriate mood/affect, cooperative - Neurologic Neurologic: CNII-XII intact, moves all extremities Plan Activity: advance as tolerated, fall precautions Diet: other (cardiac diet) Additional Instructions: If you have shortness of breath or chest pain ,contact MD or go to ER. Advised to f/u applied technologist in 1-2 weeks Follow up with: GUALBERTO ZHAO MD [Primary Care Provider] - 3-5 Days LEONARD AHUMADA MD [Staff Physician] - 7 Days Prescriptions: Apixaban [Eliquis] 2 tab PO Q12HR #26 tablet Apixaban [Eliquis] 5 mg PO Q12HR #42 tablet
[2019-11-02] MEDS ORDERED: APIXABAN 5 MG TAB PO SCH (10:00)
== END 2019-10-26 18:05 | disposition home or self-care (01) | DRG 299 ==
LOC: ED 11:38 → 3A 18:40
PROVIDERS: ADMIT Internal Medicine; ATTEND Internal Medicine
DX: I82.412 Acute embolism and thrombosis of left femoral vein (principal); I26.99 Other pulmonary embolism without acute cor pulmonale; I82.432 Acute embolism and thrombosis of left popliteal vein; I82.442 Acute embolism and thrombosis of left tibial vein; I25.10 Atherosclerotic heart disease of native coronary artery without angina pectoris; J44.9 Chronic obstructive pulmonary disease, unspecified; I10 Essential (primary) hypertension; G47.33 Obstructive sleep apnea (adult) (pediatric); F12.90 Cannabis use, unspecified, uncomplicated; Z79.82 Long term (current) use of aspirin; Z79.899 Other long term (current) drug therapy; Z95.5 Presence of coronary angioplasty implant and graft
CPT/HCPCS: 36415; 71045; 71275; 80048; 80061; 80076; 82550; 83735; 83880; 84484; 85007; 85025; 85379; 85610; 85730; 93005; 93010; 93306; 94640; 96372; G0378; A9270-GY; J1650; J7040; Q9967